=== PATIENT | female | born 1955 | race Caucasian/White ===

== ENCOUNTER 2022-12-07 14:58 | Outpatient (REF) | payer MEDICARE, SELFPAY ==
[2022-12-07 21:16] LABS: Anion Gap 7.8 mmol/L (3-11); BUN 14 mg/dL (7-18); CO2 28.2 mmol/L (21.0-32.0); CREATININE 0.7 mg/dL (0.55-1.02); Calcium 9.6 mg/dL (8.5-10.1); Calculated LDL 122 mg/dL (<100); Chloride 106 mmol/L (98-107); Cholesterol 222 mg/dL (<200); Estimated GFR 95.92 (mL/min/1.73m2); Glucose 103 mg/dL (74-106); HDL Cholesterol 91 mg/dL (40-60); Potassium 4.2 mmol/L (3.5-5.1); Sodium 142 mmol/L (136-145); Triglyceride 45 mg/dL (<150)
== END 2022-12-07 14:59 | disposition home or self-care (01) ==
LOC: NCHCN 14:58
PROVIDERS: Visit Provider Nurse Practitioner Family
DX: R03.0 Elevated blood-pressure reading, without diagnosis of hypertension (principal); E78.89 Other lipoprotein metabolism disorders
CPT/HCPCS: 80048; 80061

== ENCOUNTER 2025-01-22 12:37 | Outpatient (REF) | payer MEDICARE, SELFPAY ==
[2025-01-22 14:42] LABS: HCT 47.2 % (36.0-46.0); HGB 14.9 g/dL (11.2-15.7); MCH 28.2 pg (27.0-33.0); MCHC 31.6 % (32.0-36.0); MCV 89 fL (80-95); MPV 10.9 fL (8.0-11.0); Platelet Count 286 10^3/uL (130-400); RBC 5.29 10^6/uL (3.93-5.22); RDW 13.4 % (11.7-14.6); RDW-SD 44.2 fL; WBC 5.21 10^3/uL (4.4-10.8)
[2025-01-22 15:01] LABS: ALT 24 U/L (14-59); AST 23 U/L (15-37); Albumin 4.1 g/dL (3.4-5.0); Alkaline Phosphatase 93 U/L (46-116); Anion Gap 7.4 mmol/L (3-11); BUN 11 mg/dL (7-18); Bilirubin, Total 0.5 mg/dL (0.2-1.0); CO2 30.6 mmol/L (21.0-32.0); CREATININE 0.8 mg/dL (0.55-1.02); Calculated LDL 113 mg/dL (<100); Chloride 107 mmol/L (98-107); Cholesterol 213 mg/dL (<200); Estimated GFR 80.71 (mL/min/1.73m2); Glucose 106 mg/dL (74-106); HDL Cholesterol 91 mg/dL (>or=50); Potassium 4.4 mmol/L (3.5-5.1); Sodium 145 mmol/L (136-145); Triglyceride 49 mg/dL (<150)
[2025-01-22 15:08] LABS: Hemoglobin A1C 5.7 % (<5.7)
== END 2025-01-22 12:38 | disposition home or self-care (01) ==
LOC: NCHCN 12:37
PROVIDERS: PCP Nurse Practitioner Family; Visit Provider Nurse Practitioner Family
DX: Z00.00 Encounter for general adult medical examination without abnormal findings (principal)
CPT/HCPCS: 80053; 80061; 85027; 83036